=== PATIENT | male | born 1960 | race Caucasian/White ===

== ENCOUNTER 2016-08-03 00:38 | Inpatient (IN) ==
[2016-08-03] MEDS ORDERED: NITROGLYCERIN 2% OINT 1 INCH/GM PACK TOP STA (01:15)
[2016-08-03] MEDS ORDERED: ONDANSETRON 4 MG/2 ML VIAL IV STA (01:15)
[2016-08-03] MEDS ORDERED: HYDROmorphone 2 MG/1 ML VIAL IV STA (01:15)
[2016-08-03] MEDS ORDERED: ONDANSETRON 4 MG/2 ML VIAL ONE ×2 (01:22→08:06)
[2016-08-03] MEDS ORDERED: NITROGLYCERIN 2% OINT 1 INCH/GM PACK TOP ONE (01:22)
[2016-08-03] MEDS ORDERED: HYDROmorphone 2 MG/1 ML VIAL ONE (01:22)
--- NOTE | 2016-08-03 01:25 | Emergency Department Note ---
I, Amanda Torres, am scribing for, and in the presence of, Kalyn Hussein DO 01: 20. I, Kalyn Hussein DO, personally performed the services described in this documentation, ascribed by Amanda Torres in my presence, and it is both accurate and complete . Arrival - Arrival Chief Complaint: Chest Pain Stated Complaint: CHEST PAIN SOB ED Nursing Triage Note: PATIENT COMPLAINS OF LEFT SIDED CHEST PAIN THAT IS NON- REPRODUCIBLE THAT BEGAN ABOUT AN HOUR AGO. PATIENT STATES THAT HE HAS BEEN FEELING NAUSEATED. HX OF OPEN HEART SURGERY [address] 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 Mode of Arrival: Wheelchair Limitations: No Limitations Source: Patient, Significant other Time Seen by Provider: 08/03/16 01:07 - History of Present Illness HPI Narrative: Pt is a 56 y/o male that came to the ED with c/o chest pain that began about 30 minutes ago. Pt states he was asleep when the chest pain woke up him. He reports the chest pain was sharp, on the left side of his chest, and made him unable to catch his breath. He reports he had a CABG 3 years ago at the [facility] in [place], [place]. He denies any nausea currently or pain radiating. Pt states pain was a 10/10 when it happened but it is currently a 8/10 and "bearable." Pt did not take nitroglycerin and says he does not have any at home. He reports he normally takes aspirin daily but has missed it the last couple of days. Pt denies taking any cholesterol medication. states pt has a bad history of migraines and was unable to take the nitroglycerin 3 years ago when he had his CABG. 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 Arambula and his PCP is Dr. Negron. No other complaints/pain in ED. Onset (ago): minute(s) Consistency: constant Severity: moderate, severe Severity scale (1-10): 8 Quality: sharp Allergies/Adverse Reactions: Allergies Allergy/AdvReac Type Severity Reaction Status Date / Time morphine AdvReac Headache Verified 11/21/14 15:58 prochlorperazine AdvReac Agitated Verified 01/02/16 11:04 [From Compazine] Home Medications: Home Medications Medication Instructions Recorded Confirmed Type Aspirin [Ecotrin] 81 mg PO DAILY 01/02/16 08/03/16 History Oxycodone HCl/Acetaminophen 1 each PO TID PRN 08/03/16 08/03/16 History [Percocet 10-325 mg Tablet] Carvedilol [Coreg] 12.5 mg PO BID #60 tablet 08/05/16 Rx Lisinopril [Prinivil] 20 mg PO DAILY #30 tablet 08/05/16 Rx Rosuvastatin [Crestor] 10 mg PO DAILY #30 tablet 08/05/16 Rx Ticagrelor [Brilinta] 90 mg PO BID #60 tablet 08/05/16 Rx Review of System - Review of System 12 point system: reviewed and no additional remarkable complaints except as stated - Review of System Constitutional: Absent: fever Respiratory: Present: other (chest pain made pt unable to catch his breath). Absent: cough, respiratory distress Cardiovascular: Present: chest pain Gastrointestinal: Absent: abdominal pain, nausea Musculoskeletal: Absent: arm pain, back pain, leg pain, neck pain Skin: Absent: rash Neurological: Absent: headache Psychiatric: Absent: anxiety Medical,Surgical,& Family Hx - Medical History Cardio: History of: CAD, Hypertension Neurology: History of: Migraine - Surgical History Cardiac Surgeries: Sugical HX of: Cardiac Surgery (bypass) - Family History Family History: Reports;: Family Heart Disease (father, age greater than 70) - Social History Smoking Status: Never smoker Frequency of Alcohol Use: None Type of Drug Use: None Exam Vital Signs: Vital Signs Temperature 98.1 F 08/05/16 08:00 Pulse Rate 60 08/05/16 12:00 Respiratory Rate 18 08/05/16 13:00 Blood Pressure 132/72 08/05/16 08:00 O2 Sat by Pulse Oximetry 97 08/05/16 12:00 - General General appearance: alert, in no apparent distress - Head Head exam: Present: atraumatic, normocephalic - Eye Eye exam: Present: PERRL, EOMI - ENT ENT exam: Present: mucous membranes moist. Absent: mucous membranes dry - Neck Neck exam: Present: full ROM. Absent: tenderness - Chest Chest inspection: Present: symmetric chest wall rise. Absent: tenderness - Respiratory Respiratory exam: Present: normal lung sounds bilaterally. Absent: respiratory distress - Cardiovascular Cardiovascular exam: Present: regular rate, normal rhythm, murmur (grade 1 systolic murmur) - Abdominal Exam Abdominal exam: Present: soft. Absent: tenderness - Extremities Exam Extremities exam: Present: full ROM. Absent: tenderness - Back Exam Back exam: Present: full ROM. Absent: tenderness - Neurological Exam Neurological exam: Present: alert, oriented X3, CN II-XII intact. Absent: motor sensory deficit - Psychiatric Psychiatric exam: Present: normal affect, normal mood - Skin Skin exam: Present: pallor Course Course Narrative: spoke with DR Gresham who will admit pt. pt is stable at this time Results - Labs CBC & BMP: 08/04/16 06:06 08/04/16 06:05 Lab Results: I have reviewed the patients labs Labs: Laboratory Tests 08/03/16 01:06 MPV 12.1 H Baso % (Auto) 1.0 H Cocke # (Auto) 1.0 H Laboratory Tests 08/03/16 01:06 Sodium 146 H Anion Gap 17.0 H Glucose 110 H AST 41 H ALT 62 H Disposition Clinical Impression: Chest pain Case discussed with: patient, patient's family Disposition: Still a Patient Condition: Stable New Prescriptions: Rx's Medication Instructions Recorded Carvedilol [Coreg] 12.5 mg PO BID #60 tablet 08/05/16 Lisinopril [Prinivil] 20 mg PO DAILY #30 tablet 08/05/16 Rosuvastatin [Crestor] 10 mg PO DAILY #30 tablet 08/05/16 Ticagrelor [Brilinta] 90 mg PO BID #60 tablet 08/05/16 Time of Disposition: 02:29
[2016-08-03 01:43] LABS: Basophils # 0.1 10*3/uL (0.0-0.2); Eosinophils # 0.3 10*3/uL (0.0-0.87); Eosinophils % 3.7 % (0.00-10.9); Hematocrit 45.9 VOL% (42.0-52.0); Hemoglobin 15.3 GM/DL (14.0-18.0); Immature Granulocytes % 0.2 %; Immature Granulocytes Absolute 0.02 #; Lymphocytes % 44.1 % (21.2-54.2); Mean Corpuscular HGB Conc 33.3 GM/DL (32-36); Mean Corpuscular Hemoglobin 31 PG (27-34); Mean Corpuscular Volume 93.5 FL (87-102); Mean Platelet Volume 12.1 FL (9.6-12.0); Monocytes % 10.9 % (1.7-12.7); Neutrophils # 3.7 10*3/uL (1.4-7.4); Neutrophils % 40.1 % (38.7-73.9); Platelet Count 223 T/CUMM (130-400); Red Blood Count 4.91 MC/CUMM (3.8-5.5); Red Cell Distribution Width 11.7 % (9.3-17.3); White Blood Count 9.1 T/CUMM (4-12)
[2016-08-03 01:50] LABS: Alanine Aminotransferase 62 U/L (16-61); Albumin 4.1 G/DL (3.4-5.0); Alkaline Phosphatase 54 U/L (45-117); Aspartate Amino Transferase 41 U/L (0-37); Bilirubin,Total < 0.39 MG/DL (0.2-1.0); Blood Urea Nitrogen 16 MG/DL (7-18); Calcium 9.1 MG/DL (8.5-10.1); Glucose 110 MG/DL (74-106); Osmolality,Calculated 291.6 MOS/KG (273-304); Sodium 146 MMOL/L (136-145); Total Protein 7.6 G/DL (6.4-8.3)
[2016-08-03] MEDS ORDERED: MAGNESIUM SULF RIDER 4 GM in PREMIX 1 EACH IV PRN (02:30)
[2016-08-03] MEDS ORDERED: MAGNESIUM SULF RIDER 2 GM in PREMIX 1 EACH IV PRN (02:30)
--- NOTE | 2016-08-03 02:36 | EKG Report ---
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
--- NOTE | 2016-08-03 03:47 | EKG Report ---
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
[2016-08-03] MEDS: HYDROmorphone 2 MG/1 ML VIAL IV SCH ×13 (05:06→23:47)
[2016-08-03] MEDS: SODIUM CHLORIDE 0.9% 1,000 ML IV SCH ×3 (05:06→21:07)
[2016-08-03 06:25] LABS: CKMB % 11.6 %
[2016-08-03 06:26] LABS: Troponin I Only 0.702 NG/ML (0.00-0.045)
[2016-08-03 06:27] LABS: CKMB % 11.5 %
[2016-08-03 06:29] LABS: Troponin I Only 0.681 NG/ML (0.00-0.045)
[2016-08-03 06:34] LABS: Risk Ratio 5.5; Thyroid Stimulating Hormone 1.96 uIU/ml (0.358-3.74); VLDL CHOLESTEROL 42.4 MG/DL
[2016-08-03] MEDS ORDERED: TICAGRELOR 90 MG TABLET PO ONE (06:37)
--- NOTE | 2016-08-03 06:48 | Cardiology History & Physical ---
Assessment and Plan - Time spent with patient Time spent with patient: Greater than 30 minutes (chart reviewed documentation examination and orders) (1) Non-ST elevation myocardial infarction (NSTEMI) Status: Acute Assessment and plan: Because of postinfarct angina recommended urgent left heart catheterization the laborer drying department has been called and will be within the hour. Will load with Lovenox and Brilinta Current Visit: Yes (2) Post-infarction angina Status: Acute Current Visit: Yes (3) Dyslipidemia Status: Chronic Assessment and plan: Previously he states he stopped because he had some aches. I will reload in the face of this ACS Current Visit: Yes (4) Coronary artery disease Status: Chronic Current Visit: Yes Qualifiers: Coronary Disease-Associated Artery/Lesion type: [place] artery [place] vs. transplanted heart: [place] heart Associated angina: with unstable angina Qualified Code(s): I25.110 - Atherosclerotic heart disease of [place] coronary artery with unstable angina pectoris (5) Uncontrolled hypertension Status: Acute Assessment and plan: Add HODA inhibitor. Treat more aggressively after the left heart cath. Current Visit: Yes History of Present Illness Chief complaint: chest pain History of present illness: Mr. Smith is a 56 year old male patient of Dr. Darrin Arambula who had left heart catheterization after abnormal nuclear stress test at [facility] in [facility] in 2012. This was abnormal which resulted in left heart catheterization ultimately had two-vessel coronary bypass grafting. He had a PETTY presumptively to the LAD and a saphenous vein graft to the left circumflex system. The patient states that he did not have a heart attack at that time and as far as he knows his LV function is normal. The patient was working around the house yesterday and developed a burning sensation under his left pectoralis muscle that went away after he stopped. He took some pain medicine and didn't seem to improve at that much but it did resolve on its own. He had uneventful rest of the day and then he was awakened from his sleep last night approximately 1030 with burning very sharp burning in his left pectoralis. He said this was different than his heartburn which can occur in his throat but this was in his left side of his chest. He did not get nauseated or diaphoretic. He came to the emergency room and evaluated there by Dr. Hussein. I was called around 2 o'clock this morning to admit the patient he had a troponin of 0.03. I was told that his EKG was "okay." The patient was given nitroglycerin and pain medicines and put on the floor. He did not receive anticoagulants. The patient takes an aspirin daily he does not take a statin. His blood pressure is significantly elevated. I reviewed the patient's EKG he has T-wave inversion and ST depression in lead 1 and aVL this is suggestive of high lateral ischemia. He continues to have this burning in his chest he states it significantly better in his exact words "it's almost as bad as my headache." Based on the findings, history, troponin and EKG I have recommended urgent left heart catheterization selective coronary angiography graft injection and possible PCI. I discussed with him and he is willing to proceed. I will give anticoagulation and we'll also load with ticagelor. Home Medications Medication Instructions Recorded Confirmed Type Aspirin [Ecotrin] 81 mg PO DAILY 01/02/16 08/03/16 History Metoprolol Tartrate 25 mg PO BID 01/02/16 08/03/16 History Oxycodone HCl/Acetaminophen 1 each PO TID PRN 08/03/16 08/03/16 History [Percocet 10-325 mg Tablet] Allergies Allergy/AdvReac Type Severity Reaction Status Date / Time morphine AdvReac Headache Verified 11/21/14 15:58 prochlorperazine AdvReac Agitated Verified 01/02/16 11:04 [From Compazine] - Constitutional Constitutional: Absent: anorexia, chills, night sweats, weakness, weight gain - EENT Eyes: Absent: blurry vision, loss of vision Ears: Absent: decreased hearing Nose, mouth and throat: Present: nasal congestion. Absent: neck mass, throat swelling - Cardiovascular Cardiovascular: Present: chest pain at rest, chest pain with activity, dyspnea on exertion. Absent: diaphoresis, edema, orthopnea, palpitations, PND - Respiratory Respiratory: Present: dyspnea, dyspnea on exertion - Gastrointestinal Gastrointestinal: Absent: abdominal pain, constipation, cramping, dyspepsia - Genitourinary Genitourinary: Absent: difficulty urinating, hematuria - Musculoskeletal Musculoskeletal: Absent: arthralgias - Neurological Neurological: Absent: behavioral changes, confusion, convulsions, disequilibrium , dizziness - Psychiatric Psychiatric: Absent: anxiety, depression - Endocrine Endocrine: Absent: cold intolerance, heat intolerance - Hematologic/Lymphatic Hematologic/Lymphatic: Absent: easy bleeding, easy bruising Medical,Surgical,& Family Hx - Medical History Cardio: History of: CAD, Hypertension Psychological: History of: Depression No history of: Previous Suicide Attempt Neurology: History of: Migraine Gastrointestinal: History of: GERD Musculoskeletal: History of: Back/Neck Problems - Surgical History Cardiac Surgeries: Sugical HX of: Cardiac Catheterization, Cardiac Surgery ( bypass) HEENT Surgeries: Surgical HX of: Tonsilectomy & Adenoidectomy Orthopedic Surgeries: Patient denies;: Spinal Surgery (ablation to lower spine (L4)) Additional Surgical History: Talus repair - Family History Family History: Reports;: Family Cancer (mother), Family Heart Disease (father, age greater than 70) - Social History Smoking Status: Never smoker Frequency of Alcohol Use: None Type of Drug Use: None Marital Status: Lives With:: Spouse Functional capacity: independent ambulation (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[employer]) Cardiology Physical Exam - Constitutional Vitals: Vital Signs Temp Pulse Resp BP Pulse Ox 97.3 F L 67 20 160/102 99 08/03/16 02:29 08/03/16 03:52 08/03/16 05:56 08/03/16 03:52 08/03/16 03:52 Intake and Output 08/02/16 08/02/16 08/03/16 15:59 23:59 07:59 Intake Total 0 / 0 Output Total 150 / 150 Balance -150 / -150 Intake: Oral 0 / 0 Output: Urine 150 / 150 Other: Weight 104.553 kg Patient Weight 08/03/16 23:59 Weight 104.553 kg General appearance: normal weight - Head Head exam: Present: normal inspection - Eye Eye exam: Present: EOMI Pupils: Present: NONA - ENT ENT exam: Present: normal exam - Neck Neck exam: Present: normal inspection - Respiratory Respiratory exam: Present: clear to auscultation bilaterally - Cardiovascular Cardiovascular exam: Present: regular rate and rhythm (he has an S4) - GI/Abdominal GI/Abdominal exam: Present: normal bowel sounds - Neurological Exam Neurological exam: Present: alert, oriented X3 - Psychiatric Psychiatric exam: Present: normal affect, normal mood - Skin Skin exam: Present: normal color, warm Result/EKG - Labs CBC & BMP: 08/03/16 01:06 08/03/16 01:06 Labs: Laboratory Results - last 24 hr 08/03/16 08/03/16 08/03/16 05:36 05:36 05:36 Total Creatine Kinase 121 D 122 CK-MB (CK-2) 14.0 H D 14.0 H CK and CKMB Interp 11.6 11.5 Troponin I 0.702 H D 0.681 H Triglycerides 212 H Cholesterol 198 LDL Cholesterol 131.0 VLDL Cholesterol 42.4 HDL Cholesterol 36 L Heart Disease Risk Ratio 5.50 TSH 3rd Generation 1.960 - EKG EKG results: interpreted by me (normal sinus rhythm with isolated T-wave inversion in V1 and V2 this suggests high lateral ischemia)
--- NOTE | 2016-08-03 06:53 | History and Physical Update ---
Sedation H&P Update - History and Physical H&P was reviewed, the patient examined and there: are no changes in the patients condition since last H&P was completed. - Dictation Physical: refer to H&P completed by admitting physician - Physical Exam Mental Status: alert and oriented Heart: regular rate and rhythm Lung: clear to auscultation Abdomen: within normal limits Vitals: within normal limits - Sedation Plan for Sedation: moderate Patient Consent: Procedure disscussed with patient and patinet has consented., Risks and benefits were discussed with patient,including infection,, bleeding, injury to surrounding structures, seizure, temporary nerve, Patient understands and accepts potential risks/benefits and agrees to, proceed. ASA Class: III Airway Assessment: Class II: Soft palate, uvula, fauces visible
[2016-08-03] MEDS: ENOXAPARIN 100 MG/ML SYRINGE SUBCUT SCH ×2 (06:58→18:19)
--- NOTE | 2016-08-03 07:53 | EKG Report ---
Stationary ECG Study [facility] Test Date: 08/03/2016 7:52:20 AM Pat Name: JOSE LOCO Department: Room: 128 Gender: M Application Tester: : 1960 Requested by: Kalyn Hussein Order Number: [id number] Reading MD: ERIKA GARCIA Intervals [place] Rate: 65 P: 26 LA: 136 QRS: 50 QRSD: 88 T: 51 QT: 376 QTc: 387 Interpretive Statements SINUS RHYTHM Electronically Signed On 08-03-16 18:20:25 GLASS SANDER by ERIKA GARCIA [id number]
[2016-08-03] MEDS ORDERED: HEPARIN/NACL 0.9% 2 UNITS/ML 1,000 ML IV ONE (08:03)
[2016-08-03] MEDS ORDERED: LIDOCAINE 1% 20 ML VIAL ONE (08:03)
[2016-08-03] MEDS ORDERED: MIDAZOLAM 2 MG/2 ML VIAL ONE ×2 (08:06→08:43)
[2016-08-03] MEDS ORDERED: fentaNYL 100 MCG/2 ML VIAL ONE (08:06)
[2016-08-03] MEDS ORDERED: HEPARIN/NACL 0.9% 2 UNITS/ML 500 ML IV ONE (08:29)
--- NOTE | 2016-08-03 08:31 | XRay Report ---
Portable chest Date:[08/03/2016] Clinical history: Chest pain Comparison: 11/21/2014 Technique: Portable AP sitting chest Findings: The heart is minimally enlarged with prior median sternotomy. Stable calcified granuloma at the left lung apex. Chronic scarring with stable mediastinum and osseous structures. Impression: No acute cardiopulmonary pathology identified. PROCEDURE INTERPRETED AT [facility] DEPARTMENT OF RADIOLOGY Final Report Signed by: Dr. Yancy Christina
[2016-08-03] MEDS ORDERED: hydrALAZINE 20 MG/1 ML VIAL IV PRN (08:52)
[2016-08-03] MEDS ORDERED: ZALEPLON 5 MG CAPSULE PO PRN (08:52)
[2016-08-03] MEDS ORDERED: ENOXAPARIN 40 MG/0.4 ML SYRINGE SUBCUT SCH (09:00)
--- NOTE | 2016-08-03 09:09 | Cardiac Catheterization ---
Date of Procedure:: 08/03/16 Pre-op Diagnosis: Non-ST elevation myocardial infarction with unstable angina Post-op diagnosis: other (Non-ST elevation myocardial infarction secondary to 100% thrombotic occlusion of the mid RCA with ALEXIS 0 flow. There is ALEXIS III flow with 0% residual stenosis post PCI with 3.5 x 23 mm Xience Alpine drug- eluting stent postdilated high-pressure anesthesia with 4 oh NC balloon) Procedure: Procedures: 1. Selective left and right coronary angiography 2. Saphenous vein graft injection to the LAD 3. In situ left internal mammary artery injection (not connected to the myocardium) 4. In situ injection of the right internal mammary artery (not connected to the myocardium) 5. PCI of the negative RCA with a 3.5 x 23 mm science Alpine drug-eluting stent with 0% residual and ALEXIS-3 flow post PCI. Pre-PCI there was ALEXIS 0 flow and 100% occlusion. There was collaterals from the left. Only single vein graft was found. After consent was taken from the patient. Taken to the catheterization lab for left heart catheterization via the femoral artery. Time out was taken and recorded. 1% lidocaine was infiltrated in the skin and subcutaneous tissue overlying the right femoral artery. Modified Seldinger technique and an 18- gauge Cook needle was used for access to the right femoral artery. An 0.35 J- wire was advanced through the needle into the central aorta under fluoroscopy. A small skin was made and a 6 German sheath was placed over the wire. The sheath was aspirated and flushed. A JL46 was advanced over the wires in the left main coronary artery was selectively engaged. Multiple orthogonal views of the left system were obtained. The catheter was then exchanged over the wire. The sheath was aspirated and flushed. A JR4 catheter was advanced over the wire into the central aorta. The right coronary was selectively engaged and orthogonal views of the right coronary artery were obtained. This catheter was then pulled back in the search for vein grafts extensively only found a single vein graft to the LAD system. It was then pulled back in the left MARÍA was selectively engaged it did not contribute the ventricular myocardial angiography. The right internal mammary artery was then nonselectively engaged and there was no contribution of this vessel to the ventricular myocardium either. (The patient history indicates that there is 1 arterial graft and one vein graft at the time of his bypass due to ostial disease in the vessels coming off the left main) The catheter was then exchanged over the wire, the sheath was aspirated and flushed. At this time an angled pigtail catheter was advanced across the aortic valve into the ventricle. Pressure measurements were obtained. Pullback measurements were performed. The planishing hammer operator reviewed the films. The room was set up for the intervention mode. The patient been preloaded with Brilinta and a full 100 mg of Lovenox prior to coming to the Industrial Eng. At this time a JR4 6 German guide was advanced over the wound center or the right coronary was selectively engaged. A 180 cm pro-water wire was advanced into the distal posterior lateral branch. At this time a 2.0 x 12 mm Delta balloon was used to Dotter the lesion and ALEXIS II flow was restored to the vessel and the wire was documented to be in the distal vasculature. The balloon was then brought back to the area of the lesion and inflated 1-8 sybil. The predilatation balloon was removed and a 3.5 x 23 mm Xience Alpine drug-eluting stent was advanced to the area of atheroma and deployed at 10 sybil for 10 seconds. Stent balloon was removed and a 3.5 x 20 mm NC trek was used to post dilate the distal portion of the vessel with excellent result. There was residual stenosis in the proximal vessel and appeared to be undersized the stent was removed and a 4.0 x 15 mm NC trek was used to post dilate the proximal portion of the vessel to 18 sybil and held for 30 seconds. There was excellent angiographic result with ALEXIS-3 flow. The wire was removed from the vessel and 2 orthogonal views were obtained the cath was then exchanged over the wire. The sheath was aspirated and flushed and a right femoral and iliac angiography was performed. The access site was amenable for closure and the area was reprepped with ChloraPrep and draped with sterile towels. The Angio-Seal closure device was used in standard technique. There was no hematoma and distal pulses were good. Total contrast exposure 160 cc of Omnipaque. Total fluoroscopy time 7.72 minutes with a total diagnostic fluoroscopy dose of 660mGy. FINDINGS: LV: 150/14 LVEDP: 22 Ao: 145/100 EF: Not assessed echocardiogram will be ordered LM: Left main is angiographically normal. LAD: The LAD has what appears to be moderate proximal stenosis. There is a vein graft feeding the LAD in the midportion. There is a moderate size first diagonal but has 2 segments of high-grade stenosis and ALEXIS II flow. Saphenous vein graft to the LAD: The saphenous vein graft to the LAD or a distal diagonal is a good graft it has good anastomoses. There is good flow seen within the graft as well as the igiugig vessel and competitive flow seen in injecting the igiugig system. This appears to be in a further down second diagonal or mid LAD. LCx: Left circumflex system is nondominant free of any significant atheroma there is trivial luminal irregularities. RCA: This is a very large vessel it is dominant. It has a 100% occlusion just after the takeoff of the first acute marginal with a nipple-like morphology suggesting acute changes. There is noted to be distal collaterals when injecting the left system with [id number] collaterals. There are no right to right collaterals. There was no vein graft found to this vessel. The patient told me pre-procedure that he had an arterial graft and 2 vein grafts. There were no markers in the aorta. There were one set of savanna and at this location vein graft to the LAD system was noted as above. Both the left and right MARÍA's were injected and they do not contribute to ventricular myocardial flow. Only a single vein graft was found as described above. RFA/JIM: These vessels are angiographically normal and amenable for closure Assessment: 1. Non-ST elevation myocardial infarction with postinfarct angina secondary to 100% occlusion of the mid RCA and ALEXIS 0 flow status post successful PCI with drug-eluting stent as described above 2. Uncontrolled blood pressure and elevated end-diastolic pressure 3. Residual first diagonal disease not intervened upon this time as the non- culprit vessel a very small secondary vessel and no hemodynamic compromise with submaximal medical therapy. PLAN: 1. Monitoring in the ICU 2. Dual antiplatelet therapy for minimum 1 year 3. Pharmacologic therapy including beta kayce HODA inhibitor and statin 4. Cardiac rehab 5. Therapy lifestyle changes. Implants: 1. 3.5 x 23 mm Xience drug-eluting stent 2. Angio-Seal right femoral arteriotomy Anesthesia: moderate conscious sedation Surgeon / Physician: Jazlyn Gresham Tile Grader: none Estimated blood loss: none Specimens: none sent Condition: stable Disposition: ICU/CCU - Medications / Follow-up
[2016-08-03] MEDS ORDERED: KETOROLAC 30 MG/1 ML VIAL IV ONE (09:18)
[2016-08-03] MEDS ORDERED: PROMETHAZINE INJ 25 MG in SODIUM CHLORIDE 0.9% 50 ML IV ONE (09:19)
[2016-08-03] MEDS: ONDANSETRON 4 MG/2 ML VIAL IV PRN ×3 (09:30→16:35)
--- NOTE | 2016-08-03 10:08 | CT Report ---
Referring physician: Peter Gresham Exam: CT brain without contrast Date: 08/03/2016 Comparison: None Reason: Headache, hypertension, patient taking anticoagulants, recent heart catheterization Technique: Axial images of the head were obtained without the use of contrast. Total DLP was 1195.10 mGy*cm. Findings: No hydrocephalus or midline shift is present. There is no evidence of an acute infarction or abnormal mass effect. Unfortunately there is significant residual contrast in the vasculature are/venous sinuses which limits evaluation for hemorrhage. No evidence of definite hemorrhage. Postoperative findings in the paranasal sinuses with minimal polypoidal mucosal thickening. The mastoid air cells are clear. Impression: No definite acute intracranial abnormality is identified. Retained contrast from recent heart catheterization in the vasculature/venous sinuses. Minimal sinusitis. The CT exam was performed using one or more of the following dose reduction techniques: Automated exposure control and adjustment of the mA and/or kV according to patient size. PROCEDURE INTERPRETED AT [facility] DEPARTMENT OF RADIOLOGY Final Report Signed by: Dr. Yancy Christina
--- NOTE | 2016-08-03 10:12 | EKG Report ---
Stationary ECG Study [facility] Test Date: 08/03/2016 10:11:35 AM Pat Name: JOSE LOCO Department: Room: 128 Gender: M Emergency Department Clinician: : 1960 Requested by: Peter Flores Order Number: [id number] Sindy MD: ERIKA GARCIA Intervals [place] Rate: 55 P: 53 NH: 146 QRS: 48 QRSD: 86 T: 58 QT: 407 QTc: 396 Interpretive Statements SINUS RHYTHM LEFT VENTRICULAR HYPERTROPHY AND ST-T CHANGE Electronically Signed On 08-03-16 18:25:24 ROBOT PROGRAMMER by ERIKA GARCIA [email or web address]
[2016-08-03 10:22] LABS: CKMB % 15.2 %
[2016-08-03 10:25] LABS: Troponin I Only 4.51 NG/ML (0.00-0.045)
[2016-08-03 11:55] LABS: Apearance,Urine CLEAR (Clear); Bilirubin,Urine Negative (Negative); Blood, Urine Negative (Negative); Glucose,Urine (UA) Negative (Negative); Ketones,Urine Negative (Negative); Nitrite,Urine Negative (Negative); Protein,Urine Negative; RBC,Urine <1 /HPF (0-4); Urine Color Straw (Yellow); Urine Specific Gravity 1.044 (1.001-1.035); Urine Urobilinogen < 2.0 EU/DL (0.2-1.0)
[2016-08-03] MEDS: ROSUVASTATIN 10 MG TABLET PO SCH (11:59)
[2016-08-03] MEDS: LISINOPRIL 10 MG TABLET PO SCH (11:59)
[2016-08-03] MEDS: TICAGRELOR 90 MG TABLET PO SCH ×2 (11:59→20:47)
[2016-08-03] MEDS: ASPIRIN EC 81 MG TABLET PO SCH (11:59)
[2016-08-03] MEDS: METOPROLOL TARTRATE 25 MG TABLET PO SCH ×2 (11:59→20:47)
[2016-08-03] MEDS: PANTOPRAZOLE 40 MG TABLET PO SCH (12:00)
[2016-08-04] MEDS: HYDROmorphone 2 MG/1 ML VIAL IV SCH ×10 (01:42→10:20)
[2016-08-04] MEDS: SODIUM CHLORIDE 0.9% 1,000 ML IV SCH (04:46)
[2016-08-04] MEDS: ONDANSETRON 4 MG/2 ML VIAL IV PRN ×2 (05:37→14:18)
[2016-08-04] MEDS: ENOXAPARIN 100 MG/ML SYRINGE SUBCUT SCH (06:09)
[2016-08-04 06:20] LABS: Basophils # 0.1 10*3/uL (0.0-0.2); Basophils % 0.9 % (0.0-0.8); Eosinophils # 0.4 10*3/uL (0.0-0.87); Eosinophils % 4.1 % (0.00-10.9); Hematocrit 40.7 VOL% (42.0-52.0); Hemoglobin 13.6 GM/DL (14.0-18.0); Immature Granulocytes % 0.2 %; Immature Granulocytes Absolute 0.02 #; Lymphocytes # 2.4 10*3/uL (1.4-4.0); Lymphocytes % 26.8 % (21.2-54.2); Mean Corpuscular HGB Conc 33.4 GM/DL (32-36); Mean Corpuscular Hemoglobin 31 PG (27-34); Mean Corpuscular Volume 91.7 FL (87-102); Mean Platelet Volume 11.6 FL (9.6-12.0); Monocytes # 0.8 10*3/uL (0.11-0.8); Monocytes % 9.3 % (1.7-12.7); Neutrophils # 5.3 10*3/uL (1.4-7.4); Neutrophils % 58.7 % (38.7-73.9); Platelet Count 171 T/CUMM (130-400); Red Blood Count 4.44 MC/CUMM (3.8-5.5); Red Cell Distribution Width 11.8 % (9.3-17.3)
[2016-08-04] MEDS: oxyCODONE/ACETAMINOPHEN 5-325 MG TABLET PO PRN ×2 (06:22→12:52)
[2016-08-04 06:52] LABS: Calcium 8.3 MG/DL (8.5-10.1); Potassium 4.4 MMOL/L (3.5-5.1); Risk Ratio 6.06; VLDL CHOLESTEROL 43.6 MG/DL
--- NOTE | 2016-08-04 07:24 | EKG Report ---
Stationary ECG Study [facility] Test Date: 08/04/2016 7:23:30 AM Pat Name: JOSE LOCO Department: Room: 128 Gender: M Alternative Education Teacher: ELVIS : 1960 Requested by: Peter Flores Order Number: [id number] Sindy MD: PRERNA CAMERON Intervals [place] Rate: 50 P: 24 DE: 135 QRS: 69 QRSD: 84 T: -24 QT: 412 QTc: 385 Interpretive Statements SINUS BRADYCARDIA ABNORMAL STT INFERIORLY Electronically Signed On 08-04-16 22:33:53 VARNISH MAKER by PRERNA CAMERON [email or web address]
[2016-08-04] MEDS: PANTOPRAZOLE 40 MG TABLET PO SCH (09:15)
[2016-08-04] MEDS: ROSUVASTATIN 10 MG TABLET PO SCH (09:15)
[2016-08-04] MEDS: TICAGRELOR 90 MG TABLET PO SCH ×2 (09:15→20:11)
[2016-08-04] MEDS: ASPIRIN EC 81 MG TABLET PO SCH (09:16)
[2016-08-04] MEDS: METOPROLOL TARTRATE 25 MG TABLET PO SCH (09:16)
[2016-08-04] MEDS: LISINOPRIL 10 MG TABLET PO SCH (09:16)
[2016-08-04] MEDS ORDERED: LISINOPRIL 20 MG TABLET PO SCH (10:26)
--- NOTE | 2016-08-04 10:26 | Cardiology Progress Note ---
I, oLrraine Zayas RN, am scribing for, and in the presence of, Daniel Howard MD 10:24. Assessment and Plan (1) Non-ST elevation myocardial infarction (NSTEMI) Status: Acute Assessment and plan: Status post [facility], successful PCI with 3.5 x 23 mm Xience drug-eluting stent to mid RCA. Clinically doing well. Cardiac enzymes are coming down. Left ventricular systolic function is preserved. On the transfer him to telemetry and get up and around make sure he has no problems or complications or side effects to medication, and would hope that he could be discharged home tomorrow. Current Visit: Yes (2) Uncontrolled hypertension Status: Acute Assessment and plan: This is better controlled today, SBP noted to be in the 140's. I will continue to adjust his medication to get this better control. Current Visit: Yes (3) Coronary artery disease Status: Chronic Current Visit: Yes Qualifiers: Coronary Disease-Associated Artery/Lesion type: [place] artery [place] vs. transplanted heart: [place] heart Associated angina: with unstable angina Qualified Code(s): I25.110 - Atherosclerotic heart disease of [place] coronary artery with unstable angina pectoris (4) Dyslipidemia Status: Chronic Current Visit: Yes Cardiology - PN: Subj Interval history: Mr. Smith is a 56 year old male patient known to Dr. Arambula. He is status post [facility] yesterday by Dr. Gresham with the following impression: 1. Non-ST elevation myocardial infarction with postinfarct angina secondary to 100% occlusion of the mid RCA and ALEXIS 0 flow status post successful PCI with 3.5 x 23 mm Xience drug-eluting stent 2. Uncontrolled blood pressure and elevated end-diastolic pressure 3. Residual first diagonal disease not intervened upon this time as the non- culprit vessel a very small secondary vessel and no hemodynamic compromise with submaximal medical therapy. 4. Angio-Seal right femoral arteriotomy The patient is doing well today. He has not had any symptoms of angina. He had some occasional mild burning discomfort that was unlike his angina over the night this is better. He denies shortness of breath and palpitations at this time. Vital signs are stable. Right groin stable without bleeding, no bruit auscultated. He is tolerating dual antiplatelet therapy well. Sinus rhythm with heart rates in the 50's per bill clerk. Although the patient seemed to be doing well, his was upset that they had a "terrible experience" in the emergency room yesterday. Apparently the timeliness of his workup and assessment did not meet her expectations. I did explain to her that the intervention on his coronary artery was apparently quite efficient, to the point that his cardiac enzymes barely budged in his left ventricular systolic function was preserved, and that this was a very favorable result for having had an occluded artery. This information did not seem to give her any solace. She then became adamant that they see Dr. Gresham while the patient was in the hospital. 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 This also seemed to provide little or no comfort to her. Labs - Troponin is down to 3.9 this morning from 10.1 yesterday. EKG - No acute findings noted on EKG. Active Medications Aspirin () 81 mg PO DAILY [facility] Last Admin: 08/04/16 09:16 Dose: 81 mg Enoxaparin Sodium (Lovenox) 100 mg SUBCUT Q12H [facility] Last Admin: 08/04/16 06:09 Dose: 100 mg Hydralazine HCl (Apresoline Inj) 10 mg IV Q6H PRN PRN Reason: Hypertension Hydromorphone HCl (Dilaudid Inj) 1 mg IV Q4H [facility] Last Admin: 08/04/16 05:47 Dose: Not Given Hydromorphone HCl (Dilaudid Inj) 1 mg IV Q2H [facility] Last Admin: 08/04/16 08:09 Dose: 1 mg Sodium Chloride (Ns) 1,000 mls @ 125 mls/hr IV .Q8H [facility] Last Admin: 08/04/16 04:46 Dose: 125 mls/hr Magnesium Sulfate 2 gm/ Premix 50 mls @ 25 mls/hr IV .PER PROTOCOL PRN; Protocol PRN Reason: Per Protocol Magnesium Sulfate 4 gm/ Premix 100 mls @ 25 mls/hr IV .PER PROTOCOL PRN; Protocol PRN Reason: Per Protocol Lisinopril (Prinivil) 10 mg PO DAILY [facility] Last Admin: 08/04/16 09:16 Dose: 10 mg Metoprolol Tartrate (Lopressor Tab) 25 mg PO BID [facility] Last Admin: 08/04/16 09:16 Dose: 25 mg Ondansetron HCl (Zofran Inj) 4 mg IV Q4H PRN PRN Reason: Nausea Last Admin: 08/04/16 05:37 Dose: 4 mg Oxycodone/Acetaminophen (Percocet 5-325) 2 tablet PO TID PRN PRN Reason: Pain Last Admin: 08/04/16 06:22 Dose: 2 tablet Pantoprazole Sodium (Protonix Tab) 40 mg PO DAILY [facility] Last Admin: 08/04/16 09:15 Dose: 40 mg Rosuvastatin Calcium (Crestor) 10 mg PO DAILY [facility] Last Admin: 08/04/16 09:15 Dose: 10 mg Ticagrelor (Brilinta) 90 mg PO BID [facility] Last Admin: 08/04/16 09:15 Dose: 90 mg Zaleplon (Sonata) 10 mg PO BEDTIME PRN PRN Reason: Sleep Exam (Progress Note) - Constitutional Vitals: Period Temp Pulse Resp BP Sys/Cade Pulse Ox Last 24 Hr 96.2 F-97.9 F 52-72 7-24 113-162/68-95 90-99 General appearance: normal weight, no acute distress - Head Head exam: Present: normal inspection, normocephalic, atraumatic - Eye Pupils: Present: NONA. Absent: fixed, irregular, unequal - Neck Neck exam: Present: normal inspection. Absent: lymphadenopathy, meningismus, tenderness, thyromegaly - Respiratory Respiratory exam: Present: clear to auscultation bilaterally. Absent: accessory muscle use, chest wall tenderness, rales, rhonchi, stridor, wheezes - Cardiovascular Cardiovascular exam: Present: bradycardia, regular rate and rhythm. Absent: carotid bruit, diastolic murmur, gallop, JVD, systolic murmur, tachycardia - GI/Abdominal GI/Abdominal exam: Present: normal bowel sounds, soft. Absent: distended, firm , mass, tenderness - Extremities Exam Extremities exam: Present: normal inspection, other (2+ DP and PT pulses to BLE) . Absent: calf tenderness, edema - Neurological Exam Neurological exam: Present: alert, oriented X3 - Psychiatric Psychiatric exam: Present: normal affect, normal mood. Absent: agitated, anxious - Skin Skin exam: Present: normal color, warm, dry Result/EKG - Labs CBC & BMP: 08/04/16 06:06 08/04/16 06:05 Lab Results: I have reviewed the past 24 hour labs Labs: Laboratory Results - last 24 hr 08/03/16 08/03/16 08/03/16 09:39 10:25 17:07 WBC RBC Hgb Hct MCV MCH MCHC RDW Plt Count MPV Neut % (Auto) Lymph % (Auto) [place] % (Auto) Eos % (Auto) Baso % (Auto) Neut # (Auto) Lymph # (Auto) [place] # (Auto) Eos # (Auto) Baso # (Auto) Immature Gran % Nucleated RBC % Immature Gran # Nucleated RBCs # Sodium Potassium Chloride Carbon Dioxide Anion Gap BUN Creatinine GFR Calculation BUN/Creatinine Ratio Glucose Calculated Osmolality Calcium ALT Total Creatine Kinase 205 D CK-MB (CK-2) 31.1 H D CK and CKMB Interp 15.2 Troponin I 4.510 H D 10.100 H D Triglycerides Cholesterol LDL Cholesterol VLDL Cholesterol HDL Cholesterol Heart Disease Risk Ratio Urine Color Straw Urine Appearance Clear Urine pH 5.0 Ur Specific [place] 1.044 H Urine Protein Negative Urine Glucose (UA) Negative Urine Ketones Negative Urine Blood Negative Urine Nitrate Negative Urine Bilirubin Negative Urine Urobilinogen < 2.0 H Urine Leukocytes Negative Urine RBC <1 Ur Culture Indicated? Not indicated 08/04/16 08/04/16 08/04/16 01:42 06:05 06:06 WBC 9.0 RBC 4.44 Hgb 13.6 L Hct 40.7 L MCV 91.7 MCH 31 MCHC 33.4 RDW 11.8 Plt Count 171 D MPV 11.6 Neut % (Auto) 58.7 Lymph % (Auto) 26.8 [place] % (Auto) 9.3 Eos % (Auto) 4.1 Baso % (Auto) 0.9 H Neut # (Auto) 5.3 Lymph # (Auto) 2.4 [place] # (Auto) 0.8 Eos # (Auto) 0.4 Baso # (Auto) 0.1 Immature Gran % 0.2 Nucleated RBC % 0.0 Immature Gran # 0.02 Nucleated RBCs # 0.00 Sodium 143 Potassium 4.4 Chloride 109 H Carbon Dioxide 24 Anion Gap 14.4 BUN 14 Creatinine 0.90 GFR Calculation 125 BUN/Creatinine Ratio 15.00 Glucose 93 Calculated Osmolality 285.0 Calcium 8.3 L ALT 48 Total Creatine Kinase CK-MB (CK-2) CK and CKMB Interp Troponin I 3.940 H D Triglycerides 218 H Cholesterol 194 LDL Cholesterol 127.0 VLDL Cholesterol 43.6 HDL Cholesterol 32 L Heart Disease Risk Ratio 6.06 Urine Color Urine Appearance Urine pH Ur Specific [place] Urine Protein Urine Glucose (UA) Urine Ketones Urine Blood Urine Nitrate Urine Bilirubin Urine Urobilinogen Urine Leukocytes Urine RBC Ur Culture Indicated? - EKG EKG results: interpreted by me, sinus rhythm Quality Measures - VTE Contraindication to Pharmacological VTE Prophylaxis: Already on Theraputic Agent , No Prophylaxis Needed Specialty Discharge - Follow Up or Referrals Follow up with: Darrin Arambula MD [Physician] - 2 Weeks (CBC, BMP with Mag) I, Daniel Howard MD, personally performed the services described in this documentation, ascribed by Lorraine Zayas RN in my presence, and it is both accurate and complete .
--- NOTE | 2016-08-04 12:16 | EKG Report ---
Stationary ECG Study [facility] Test Date: 08/04/2016 12:14:52 PM Pat Name: JOSE LOCO Department: Room: 128 Gender: M Fiscal Manager: ELVIS : 1960 Requested by: Phyllis Sanchez Order Number: [id number] Reading MD: PRERNA CAMERON Intervals [place] Rate: 51 P: 12 DC: 134 QRS: 27 QRSD: 90 T: -17 QT: 408 QTc: 386 Interpretive Statements SINUS BRADYCARDIA LEFT VENTRICULAR HYPERTROPHY AND ST-T CHANGE ABNORMAL STT INFERIORLY Electronically Signed On 08-04-16 22:42:27 MORTGAGE LOAN ASSISTANT by PRERNA CAMERON [id number]
[2016-08-04] MEDS: HYDROmorphone 2 MG/1 ML VIAL IV PRN ×2 (14:25→21:13)
[2016-08-04] MEDS ORDERED: ALUMINUM/MAGNES/SIMETH MAX STR 30 ML UDCUP PO PRN (16:50)
[2016-08-04] MEDS ORDERED: ALUMINUM/MAGNES/SIMETH MAX STR 30 ML UDCUP ONE (16:51)
[2016-08-04] MEDS: CARVEDILOL 12.5 MG TABLET PO SCH (21:13)
[2016-08-05] MEDS: HYDROmorphone 2 MG/1 ML VIAL IV PRN (01:05)
[2016-08-05] MEDS: oxyCODONE/ACETAMINOPHEN 5-325 MG TABLET PO PRN (07:41)
--- NOTE | 2016-08-05 08:29 | ECHO Report ---
Emanuel Smith Exam Date: 08/03/2016 11:01 Referring Physician: Technologist: Pedro OSBORN Age: 56 Ht (in): Wt (lb): Gender: M Exam Location: [facility] Echo Indications: HTN, CAD, Chest pain, NSTEMI, Post [place], dyslipidemia BP: / HR: Rhythm: Sinus Technical Quality: Fair IMPRESSIONS EF 55%,septal and mild inferior hypokinesis. Grade I/IV diastolic dysfunction (abnormal relaxation filling pattern), normal to mildly elevated filling pressures. Normal right ventricular size. The right atrium is mildly enlarged. Mildly increased left atrial diameter. Mildly thickened mitral valve. Trace mitral valve regurgitation. Aortic valve sclerosis. Trace aortic valve regurgitation. Moderate tricuspid valve regurgitation. [id number]. Pulmonic valve not well visualized. No pericardial effusion. Normal size aortic root and proximal ascending aorta. MEASUREMENTS (Male / Female) Normal Values 2D ECHO LV Diastolic Diameter PLAX 3.8 cm 4.2 - 5.9 / 3.9 - 5.3 cm LV Systolic Diameter PLAX 2.2 cm LV Fractional Shortening PLAX 43.2 % IVS Diastolic Thickness 1.3 cm 0.6 - 1.0 / 0.6 - 0.9 cm LVPW Diastolic Thickness 1.1 cm 0.6 - 1.0 / 0.6 - 0.9 cm RV Internal Dim ED PLAX 2.6 cm Aortic Root Diameter 2.5 cm LA Systolic Diameter LX 4.2 cm 3.0 - 4.0 / 2.7 - 3.8 cm DOPPLER TR Peak Velocity 341.0 cm/s TR Peak Gradient 46.5 mmHg FINDINGS Left Ventricle EF 55%,septal and mild inferior hypokinesis. Grade I/IV diastolic dysfunction (abnormal relaxation filling pattern), normal to mildly elevated filling pressures. Right Ventricle Normal right ventricular size. Right Atrium The right atrium is mildly enlarged. Left Atrium Mildly increased left atrial diameter. Mitral Valve Mildly thickened mitral valve. Trace mitral valve regurgitation. Aortic Valve Aortic valve sclerosis. Trace aortic valve regurgitation. Tricuspid Valve Morphologically normal tricuspid valve. Moderate tricuspid valve regurgitation. [id number]. Pulmonic Valve Pulmonic valve not well visualized. . Pericardium No pericardial effusion. Aorta Normal size aortic root and proximal ascending aorta. Stanford Juarez (Electronically Signed) Final Date: 03 August 2016 15:41
--- NOTE | 2016-08-05 08:30 | Discharge Summary ---
Hospital Course - Hospital Course Hospital Course: The patient is a 56 male with a history of coronary artery disease and previous bypass surgery. He came to the hospital with non-ST elevation myocardial infarction and went urgently to cardiac catheterization. Dr. Gresham successfully stented his complete occlusion of the mid right coronary artery with a 3.5 x 23 mm Xience [place] drug-eluting stent with an excellent angiographic result. Due to prompt revascularization, his CPK level never got out of the normal range and his peak troponin was 10.1. His next troponin was down to 3.94. His Echocardiogram demonstrated preserved left ventricular systolic function with an ejection fraction of around 55% with mild inferior septal hypokinesis, so it appears that he suffered minimal cardiac injury. The patient did well after the procedure. He had no palpitations from the cardiac catheterization access site. Overnight he has had no anginal symptoms or other complaints. He is feeling great this morning and is ready to go home. Diagnosis - Discharge Diagnosis (1) Non-ST elevation myocardial infarction (NSTEMI) Status: Acute (2) Uncontrolled hypertension Status: Acute (3) Coronary artery disease Status: Chronic (4) Dyslipidemia Status: Chronic Specialty Discharge - Follow Up or Referrals Follow up with: Darrin Arambula MD [Physician] - 2 Weeks (JEANNIE, BMP with Mag) Discharge Plan - Discharge Data Disposition: Disch To Home/Self Care - Discharge Medications New Rosuvastatin [Crestor] 10 mg PO DAILY #30 tablet Carvedilol [Coreg] 12.5 mg PO BID #60 tablet Lisinopril [Prinivil] 20 mg PO DAILY #30 tablet Ticagrelor [Brilinta] 90 mg PO BID #60 tablet Continue Aspirin [Ecotrin] 81 mg PO DAILY Oxycodone HCl/Acetaminophen [Percocet 10-325 mg Tablet] 1 each PO TID PRN PRN Reason: Pain Discontinued Metoprolol Tartrate 25 mg PO BID - Follow Up or Referral Follow Up: Darrin Arambula MD [Physician] - 1 Week (1-[address] Arambula with CBC , BMP with Mag, and EKG) - Forms/Instructions Instructions: Myocardial Infarction (GEN), Left Heart Catheterization (DC), Heart Healthy Diet (GEN), Coronary Intravascular Stent Placement, Cutter Wet Machine (GEN) Exam - Constitutional Vitals: Period Temp Pulse Resp BP Sys/Cade Pulse Ox Last 24 Hr 97.5 F-98.9 F 52-72 10-20 113-155/59-87 95-100 Discharge Results Procedures and tests throughout hospitalization: Pending Orders 08/03/16 13:49 MRSA Surveillence, Inf Control Stat Labs on day of discharge: Preliminary micro results at discharge 08/03/16 13:49 MRSA Surveillance Culture - Preliminary Nares No MRSA isolated. DS: Provider Date of admission: 08/03/16 02:30 Primary care physician: Kike Ragsdale MD Attending physician on admission: Jazlyn Gresham DO Consults: 08/03/16 08:54 Consult to Cardiac Rehabilitation [CONS] Routine Reason for Cardiac Rehabilitation: Risk Factor Modification Discharging clinician: Daniel Howard MD
[2016-08-05] MEDS: ASPIRIN EC 81 MG TABLET PO SCH (08:46)
[2016-08-05] MEDS: PANTOPRAZOLE 40 MG TABLET PO SCH (08:46)
[2016-08-05] MEDS: CARVEDILOL 12.5 MG TABLET PO SCH (08:46)
[2016-08-05] MEDS: TICAGRELOR 90 MG TABLET PO SCH (08:46)
[2016-08-05] MEDS: ROSUVASTATIN 10 MG TABLET PO SCH (08:46)
[2016-08-05 12:15] VITALS: BP 132/72
== END 2016-08-05 13:05 | disposition home or self-care (01) | DRG 247 ==
LOC: N.ED 00:38 → N.EDINP 02:30 → N.TELES 03:08 → N.CC 09:11
PROVIDERS: ADMIT Internal Medicine Cardiovascular Disease; ATTEND Internal Medicine Cardiovascular Disease

== ENCOUNTER 2020-08-18 11:56 | Inpatient (IN) ==
[2020-08-18] MEDS ORDERED: ONDANSETRON 4 MG/2 ML VIAL IV ONE (14:27)
[2020-08-18] MEDS ORDERED: SODIUM CHLORIDE 0.9% 1,000 ML IV STA (14:27)
[2020-08-18 15:22] LABS: Basophils % 0.2 % (0.0-0.8); Eosinophils # 0.2 10*3/uL (0.0-0.87); Eosinophils % 1.3 % (0.00-10.9); Hematocrit 40.6 VOL% (42.0-52.0); Hemoglobin 13.3 GM/DL (14.0-18.0); Immature Granulocytes % 0.6 %; Immature Granulocytes Absolute 0.07 #; Lymphocytes # 1.1 10*3/uL (1.4-4.0); Lymphocytes % 9.6 % (21.2-54.2); Mean Corpuscular HGB Conc 32.8 GM/DL (32-36); Mean Corpuscular Volume 92.3 FL (87-102); Mean Platelet Volume 10.8 FL (9.6-12.0); Monocytes % 8.9 % (1.7-12.7); Neutrophils % 79.4 % (38.7-73.9); Platelet Count 290 T/CUMM (130-400); Red Cell Distribution Width 11.9 % (9.3-17.3); White Blood Count 11.2 T/CUMM (4-12)
[2020-08-18 15:45] LABS: Alanine Aminotransferase 30 U/L (16-61); Albumin 2.5 G/DL (3.4-5.0); Alkaline Phosphatase 37 U/L (45-117); Aspartate Amino Transferase 27 U/L (0-37); Blood Urea Nitrogen 35 MG/DL (7-18); Carbon Dioxide 20 MMOL/L (21-32); Estimated Glom Filtration Rate 88 ML/MIN; Glucose 108 MG/DL (74-106); Osmolality,Calculated 283.7 MOS/KG (273-304); Potassium 4.4 MMOL/L (3.5-5.1); Sodium 138 MMOL/L (136-145); Total Protein 7.5 G/DL (6.4-8.3); Troponin I < 0.015 NG/ML (0.00-0.045)
[2020-08-18 15:53] LABS: INR 1.1; PT Patient Result 11.9 SECS (9.8-11.9)
[2020-08-18] MEDS ORDERED: AZITHROMYCIN INJ 500 MG in SODIUM CHLORIDE 0.9% 250 ML IV STA (16:08)
[2020-08-18] MEDS ORDERED: cefTRIAXone 1,000 MG in SODIUM CHLORIDE 0.9% 100 ML IV STA (16:08)
[2020-08-18] MEDS ORDERED: CETIRIZINE 10 MG TABLET PO PRN (16:28)
[2020-08-18] MEDS ORDERED: DEXAMETHASONE 10 MG/1 ML VIAL IV SCH (16:30)
[2020-08-18] MEDS ORDERED: GLUCAGON 1 MG VIAL IM PRN (16:32)
[2020-08-18] MEDS ORDERED: DEXTROSE 50% 25 GM/50 ML VIAL IV PRN (16:32)
[2020-08-18 16:42] LABS: Ferritin 797.4 ng/ml (26-388)
[2020-08-18 17:08] LABS: Risk Ratio 4.92; Thyroid Stimulating Hormone 0.959 uIU/ml (0.358-3.74)
[2020-08-18] MEDS: DEXAMETHASONE 4 MG/1 ML VIAL IV SCH (17:17)
[2020-08-18] MEDS: ZINC SULFATE 220 MG CAPSULE PO SCH (17:56)
[2020-08-18] MEDS: ACETAMINOPHEN 325 MG TABLET PO PRN (17:59)
[2020-08-18] MEDS: LACTATED RINGERS 1,000 ML IV SCH (18:01)
[2020-08-18] MEDS: carvediloL 12.5 MG TABLET PO SCH (20:31)
[2020-08-18] MEDS: ATORVASTATIN 10 MG TABLET PO SCH (20:32)
[2020-08-18] MEDS: FAMOTIDINE 20 MG TABLET PO SCH (20:32)
[2020-08-18] MEDS: ASCORBIC ACID 500 MG TABLET PO SCH (20:32)
[2020-08-19 06:53] LABS: Basophils % 0.1 % (0.0-0.8); Eosinophils % 0.1 % (0.00-10.9); Hematocrit 36.5 VOL% (42.0-52.0); Hemoglobin 12.3 GM/DL (14.0-18.0); Immature Granulocytes % 0.9 %; Immature Granulocytes Absolute 0.07 #; Lymphocytes # 0.9 10*3/uL (1.4-4.0); Lymphocytes % 11.3 % (21.2-54.2); Mean Corpuscular HGB Conc 33.7 GM/DL (32-36); Mean Platelet Volume 11.4 FL (9.6-12.0); Monocytes % 6.4 % (1.7-12.7); Neutrophils % 81.2 % (38.7-73.9); Platelet Count 289 T/CUMM (130-400); Red Blood Count 4.01 MC/CUMM (3.8-5.5); Red Cell Distribution Width 11.9 % (9.3-17.3); White Blood Count 7.5 T/CUMM (4-12)
[2020-08-19 07:16] LABS: Calcium 8.6 MG/DL (8.5-10.1); Osmolality,Calculated 283.7 MOS/KG (273-304); Potassium 4.8 MMOL/L (3.5-5.1)
[2020-08-19 07:17] LABS: Platelet Estimate Adequate
[2020-08-19] MEDS: LACTATED RINGERS 1,000 ML IV SCH ×2 (07:30→20:54)
[2020-08-19] MEDS: ASPIRIN CHEW 81 MG TABLET PO SCH (09:01)
[2020-08-19] MEDS: ASCORBIC ACID 500 MG TABLET PO SCH ×2 (09:01→20:53)
[2020-08-19] MEDS: LOSARTAN 25 MG TABLET PO SCH (09:01)
[2020-08-19] MEDS: carvediloL 12.5 MG TABLET PO SCH ×2 (09:01→20:53)
[2020-08-19] MEDS: CLOPIDOGREL 75 MG TABLET PO SCH (09:01)
[2020-08-19] MEDS: CHOLECALCIFEROL 1,000 UNIT TABLET PO SCH (09:01)
[2020-08-19] MEDS: ZINC SULFATE 220 MG CAPSULE PO SCH (09:01)
[2020-08-19 09:23] LABS: ABG Base Excess -2.4 MMOL/L (-2.5-2.5); ABG HCO3 22.3 MMOL/L (20-26); ABG Oxygen Saturation 95.4 % (95-100); ABG PCO2 29.1 MM HG (35-48); ABG PH 7.454 (7.35-7.45); ABG PO2 76.2 MM HG (80-95)
[2020-08-19] MEDS ORDERED: IBUPROFEN 400 MG TABLET PO ONE (09:23)
[2020-08-19] MEDS ORDERED: REMDESIVIR 200 MG in SODIUM CHLORIDE 0.9% 210 ML IV ONE (12:00)
[2020-08-19] MEDS: BUTALBITAL/ACETAMIN/CAFFEINE 50-325-40 MG TABLET PO PRN ×2 (13:48→20:34)
[2020-08-19] MEDS: ONDANSETRON 4 MG/2 ML VIAL IV PRN (13:48)
[2020-08-19] MEDS: DEXAMETHASONE 4 MG/1 ML VIAL IV SCH (17:42)
[2020-08-19] MEDS: cefTRIAXone 1,000 MG in SYRINGE 1 EACH IV SCH (17:42)
[2020-08-19] MEDS: AZITHROMYCIN INJ 500 MG in SODIUM CHLORIDE 0.9% 250 ML IV SCH (17:43)
[2020-08-19] MEDS: ATORVASTATIN 10 MG TABLET PO SCH (20:53)
[2020-08-19] MEDS: FAMOTIDINE 20 MG TABLET PO SCH (20:53)
[2020-08-20 05:52] LABS: Basophils % 0.1 % (0.0-0.8); Hematocrit 34.3 VOL% (42.0-52.0); Hemoglobin 11.2 GM/DL (14.0-18.0); Immature Granulocytes % 0.6 %; Immature Granulocytes Absolute 0.08 #; Lymphocytes # 1.1 10*3/uL (1.4-4.0); Lymphocytes % 8.5 % (21.2-54.2); Mean Corpuscular HGB Conc 32.7 GM/DL (32-36); Mean Corpuscular Volume 93.5 FL (87-102); Mean Platelet Volume 11.9 FL (9.6-12.0); Monocytes % 6.8 % (1.7-12.7); Platelet Count 314 T/CUMM (130-400); Red Blood Count 3.67 MC/CUMM (3.8-5.5); Red Cell Distribution Width 12.2 % (9.3-17.3); White Blood Count 12.7 T/CUMM (4-12)
[2020-08-20 06:03] LABS: Calcium 8.2 MG/DL (8.5-10.1); Potassium 4.2 MMOL/L (3.5-5.1)
[2020-08-20 06:08] LABS: Alanine Aminotransferase 134 U/L (16-61); Albumin 2.3 G/DL (3.4-5.0); Alkaline Phosphatase 38 U/L (45-117); Aspartate Amino Transferase 100 U/L (0-37); Bilirubin,Total < 0.39 MG/DL (0.2-1.0); Blood Urea Nitrogen 24 MG/DL (7-18); Calcium 7.9 MG/DL (8.5-10.1); Carbon Dioxide 22 MMOL/L (21-32); Estimated Glom Filtration Rate 118 ML/MIN; Glucose 116 MG/DL (74-106); Osmolality,Calculated 285.3 MOS/KG (273-304); Potassium 4.1 MMOL/L (3.5-5.1); Sodium 141 MMOL/L (136-145); Total Protein 5.7 G/DL (6.4-8.3)
[2020-08-20] MEDS: ZINC SULFATE 220 MG CAPSULE PO SCH (10:00)
[2020-08-20] MEDS: ASPIRIN CHEW 81 MG TABLET PO SCH (10:00)
[2020-08-20] MEDS: CHOLECALCIFEROL 1,000 UNIT TABLET PO SCH (10:00)
[2020-08-20] MEDS: carvediloL 12.5 MG TABLET PO SCH ×2 (10:00→20:29)
[2020-08-20] MEDS: ASCORBIC ACID 500 MG TABLET PO SCH ×2 (10:00→20:29)
[2020-08-20] MEDS: LOSARTAN 25 MG TABLET PO SCH (10:00)
[2020-08-20] MEDS: CLOPIDOGREL 75 MG TABLET PO SCH (10:01)
[2020-08-20] MEDS: REMDESIVIR 100 MG in SODIUM CHLORIDE 0.9% 100 ML IV SCH (10:01)
[2020-08-20] MEDS: BUTALBITAL/ACETAMIN/CAFFEINE 50-325-40 MG TABLET PO PRN ×2 (10:48→20:29)
[2020-08-20 14:35] LABS: Hepatitis B Core IgM Quant 0.19 Index; Hepatitis B Surface Ag Quant < 0.10 Index; Hepatitis B Surface Ag Result Non-Reactive (NonReactive); Hepatitis C Virus Ab Quant 0.11 Index; Hepatitis C Virus Ab Result Non-Reactive (NonReactive)
[2020-08-20] MEDS: cefTRIAXone 1,000 MG in SYRINGE 1 EACH IV SCH (16:22)
[2020-08-20] MEDS: DEXAMETHASONE 4 MG/1 ML VIAL IV SCH (16:22)
[2020-08-20] MEDS: AZITHROMYCIN INJ 500 MG in SODIUM CHLORIDE 0.9% 250 ML IV SCH (16:23)
[2020-08-20] MEDS: ONDANSETRON 4 MG/2 ML VIAL IV PRN (16:31)
[2020-08-20] MEDS: FAMOTIDINE 20 MG TABLET PO SCH (20:29)
[2020-08-20] MEDS: ATORVASTATIN 10 MG TABLET PO SCH (20:29)
[2020-08-20] MEDS ORDERED: ZALEPLON 5 MG CAPSULE PO PRN (21:05)
[2020-08-20] MEDS: LACTATED RINGERS 1,000 ML IV SCH ×2 (21:46→22:08)
[2020-08-21] MEDS: ONDANSETRON 4 MG/2 ML VIAL IV PRN ×2 (02:48→08:36)
[2020-08-21] MEDS: ACETAMINOPHEN 325 MG TABLET PO PRN (02:48)
[2020-08-21] MEDS: LACTATED RINGERS 1,000 ML IV SCH ×2 (05:00→16:28)
[2020-08-21 05:47] LABS: Basophils % 0.1 % (0.0-0.8); Eosinophils % 0.2 % (0.00-10.9); Hematocrit 34.7 VOL% (42.0-52.0); Hemoglobin 10.9 GM/DL (14.0-18.0); Immature Granulocytes % 0.6 %; Immature Granulocytes Absolute 0.07 #; Lymphocytes # 1.5 10*3/uL (1.4-4.0); Lymphocytes % 12.1 % (21.2-54.2); Mean Corpuscular HGB Conc 31.4 GM/DL (32-36); Mean Corpuscular Volume 95.6 FL (87-102); Mean Platelet Volume 10.9 FL (9.6-12.0); Monocytes % 8.5 % (1.7-12.7); Neutrophils % 78.5 % (38.7-73.9); Platelet Count 367 T/CUMM (130-400); Red Blood Count 3.63 MC/CUMM (3.8-5.5); White Blood Count 11.9 T/CUMM (4-12)
[2020-08-21 06:04] LABS: Osmolality,Calculated 284.3 MOS/KG (273-304)
[2020-08-21 06:06] LABS: Albumin 2.1 G/DL (3.4-5.0); Bilirubin,Total 0.5 MG/DL (0.2-1.0); Calcium 8.1 MG/DL (8.5-10.1); Osmolality,Calculated 286.1 MOS/KG (273-304); Potassium 4.1 MMOL/L (3.5-5.1); Total Protein 5.4 G/DL (6.4-8.3)
[2020-08-21] MEDS: BUTALBITAL/ACETAMIN/CAFFEINE 50-325-40 MG TABLET PO PRN (08:42)
[2020-08-21] MEDS: CHOLECALCIFEROL 1,000 UNIT TABLET PO SCH (08:42)
[2020-08-21] MEDS: ASPIRIN CHEW 81 MG TABLET PO SCH (08:42)
[2020-08-21] MEDS: CLOPIDOGREL 75 MG TABLET PO SCH (08:43)
[2020-08-21] MEDS: ASCORBIC ACID 500 MG TABLET PO SCH (08:43)
[2020-08-21] MEDS: ZINC SULFATE 220 MG CAPSULE PO SCH (08:43)
[2020-08-21] MEDS: carvediloL 12.5 MG TABLET PO SCH (08:43)
[2020-08-21] MEDS: LOSARTAN 25 MG TABLET PO SCH (08:43)
[2020-08-21] MEDS: REMDESIVIR 100 MG in SODIUM CHLORIDE 0.9% 100 ML IV SCH (08:43)
[2020-08-21 10:36] VITALS: BP 142/62
== END 2020-08-21 15:48 | disposition home or self-care (01) | DRG 177 ==
LOC: N.EDINP 11:56 → N.ED 11:56 → N.2E 16:58
PROVIDERS: ADMIT Internal Medicine; ATTEND Internal Medicine